=== PATIENT | male | born 1985 | race Caucasian/White ===

== ENCOUNTER 2017-12-30 19:23 | Emergency (ER) | payer MEDICAID ==
[~2017-12-30] VITALS: Ht 170.2 cm; Wt 84.0 kg
[2017-12-30] MEDS ORDERED: IBUPROFEN 600MG TABLET PO ONE (22:00)
[2017-12-30 22:01] VITALS: BP 148/90
== END 2017-12-30 22:01 | disposition home or self-care (01) ==
LOC: ER 21:58
DX: K02.9 Dental caries, unspecified (principal); K05.219 Aggressive periodontitis, localized, unspecified severity; F17.200 Nicotine dependence, unspecified, uncomplicated
CPT/HCPCS: 99283

== ENCOUNTER 2022-03-15 21:34 | Inpatient (IN) | payer OTHER ==
[~2022-03-15] VITALS: Ht 167.6 cm; Wt 75.6 kg
[2022-03-15 23:05] LABS: BASOPHILS % 1.3 % (0.0-2.0); EOSINOPHILS % 3.9 % (0.0-5.0); HEMATOCRIT. 47.6 % (42.0-52.0); HEMOGLOBIN. 16.7 g/dL (14.0-18.0); LYMPHOCYTES % 35.4 % (20.0-50.0); MEAN CORPUSCULAR HEMOGLOBIN 35.7 pg (28.0-32.0); MEAN PLATELET VOLUME 10.7 fl (7.4-10.4); MONOCYTES % 9.2 % (2.0-8.0); NEUTROPHILS % 50.2 % (40.0-76.0); PLATELET 130 x1000/uL (130-400); RED BLOOD CELL COUNT 4.66 mill/uL (4.7-6.1); RED CELL DISTRIBUTION WIDTH 12.7 % (11.6-14.6)
[2022-03-15 23:11] LABS: CHLORIDE 108 mEq/L (98-107)
[2022-03-15 23:20] LABS: ETHANOL BLOOD 208 mg/dL
[2022-03-15] MEDS ORDERED: IOHEXOL-350 100 ML BOTTLE ONE (23:32)
[2022-03-15] MEDS ORDERED: KETOROLAC 15MG/ML VIAL IV ONE (23:45)
[2022-03-15] MEDS ORDERED: SODIUM CHLORIDE 0.9% 1,000 ML IV ONE (23:45)
[2022-03-15] MEDS ORDERED: DIPHENHYDRAMINE 50MG/ML VIAL IV ONE (23:45)
[2022-03-15] MEDS ORDERED: METOCLOPRAMIDE HCL 10MG/2ML VIAL IV ONE (23:45)
[2022-03-15] MEDS ORDERED: MIDAZOLAM HCL 2 MG/2 ML VIAL IV ONE (23:45)
[2022-03-16 01:35] LABS: CLARITY URINE CLEAR (CLEAR); COLOR URINE YELLOW (YELLOW); KETONES URINE NEGATIVE (NEGATIVE); LEUKOCYTE ESTERASE URINE NEGATIVE (NEGATIVE); NITRITE URINE NEGATIVE (NEGATIVE); OCCULT BLOOD URINE NEGATIVE (NEGATIVE); PROTEIN URINE NEGATIVE (NEGATIVE); SPECIFIC GRAVITY URINE 1.009 (1.005-1.030); UROBILINOGEN URINE 0.2 E.U./dL (0.2-1.0)
[2022-03-16 01:58] LABS: *AMPHETAMINES SCREEN URINE NEGATIVE (NEGATIVE); *BARBITURATES SCREEN URINE NEGATIVE (NEGATIVE); *BENZODIAZEPINES SCREEN URINE NEGATIVE (NEGATIVE); *COCAINE SCREEN URINE PRESUMTIVE POSITIVE (NEGATIVE); CANNABINOID URINE SCREEN NEGATIVE (NEGATIVE); METHADONE URINE SCREEN NEGATIVE (NEGATIVE); OPIATES URINE SCREEN NEGATIVE (NEGATIVE); PHENCYCLIDINE URINE SCREEN NEGATIVE (NEGATIVE)
[2022-03-16 10:00] VITALS: BP 132/74
[2022-03-16 10:30] VITALS: BP 132/74
[2022-03-16] MEDS ORDERED: ACETAMINOPHEN 325MG TABLET PO PRN (10:45)
[2022-03-16] MEDS ORDERED: ONDANSETRON HCL 4MG/2ML INJ IV PRN (10:45)
[2022-03-16] MEDS: KETOROLAC 30MG/ML VIAL IV PRN ×2 (11:16→22:33)
[2022-03-16 12:00] VITALS: BP 133/82
[2022-03-16] MEDS: LORAZEPAM 1MG TABLET PO PRN ×2 (12:18→21:23)
[2022-03-16] MEDS: CHLORDIAZEPOXIDE 25MG CAPSULE PO SCH ×2 (14:54→21:23)
[2022-03-16] MEDS ORDERED: NALOXONE HCL 0.4MG/ML VIAL IV PRN (15:45)
[2022-03-16 16:00] VITALS: BP 131/81
[2022-03-16] MEDS: HYDROCODONE/ACETAMINOPHEN 5/325MG TABLET PO PRN ×2 (17:08→21:23)
[2022-03-16 20:00] VITALS: BP 138/83
[2022-03-17] VITALS: BP 130/78
[2022-03-17 04:00] VITALS: BP 134/73
[2022-03-17] MEDS: CHLORDIAZEPOXIDE 25MG CAPSULE PO SCH ×3 (05:15→21:33)
[2022-03-17 08:00] VITALS: BP 125/71
[2022-03-17] MEDS: THIAMINE HCL 100MG TABLET PO SCH (10:21)
[2022-03-17 12:00] VITALS: BP 124/73
[2022-03-17 16:00] VITALS: BP 141/85
[2022-03-17] MEDS: HYDROCODONE/ACETAMINOPHEN 5/325MG TABLET PO PRN (16:36)
[2022-03-17] MEDS ORDERED: BACLOFEN 10MG TABLET PO NR (18:00)
[2022-03-17] MEDS ORDERED: MORPHINE SULFATE 2 MG/ML CPJ (NOT FOR IM USE) IV NR (18:00)
[2022-03-17 20:00] VITALS: BP 145/85
[2022-03-18] VITALS: BP 116/81
[2022-03-18] MEDS: HYDROCODONE/ACETAMINOPHEN 5/325MG TABLET PO PRN ×2 (00:26→10:53)
[2022-03-18 04:00] VITALS: BP 127/76
[2022-03-18] MEDS: CHLORDIAZEPOXIDE 25MG CAPSULE PO SCH (05:21)
[2022-03-18 08:00] VITALS: BP 119/77
[2022-03-18] MEDS: THIAMINE HCL 100MG TABLET PO SCH (08:12)
[2022-03-18 12:00] VITALS: BP 111/72
== END 2022-03-18 15:25 | disposition home or self-care (01) | DRG 54 ==
LOC: ER 21:34 → 8WST 03-16 04:44
PROVIDERS: ADMIT Internal Medicine; ATTEND Internal Medicine
DX: G43.809 Other migraine, not intractable, without status migrainosus (principal); E87.8 Other disorders of electrolyte and fluid balance, not elsewhere classified; E83.51 Hypocalcemia; E88.09 Other disorders of plasma-protein metabolism, not elsewhere classified; F10.929 Alcohol use, unspecified with intoxication, unspecified; F14.90 Cocaine use, unspecified, uncomplicated; F41.9 Anxiety disorder, unspecified; Z20.822 Contact with and (suspected) exposure to COVID-19; I10 Essential (primary) hypertension; Y90.7 Blood alcohol level of 200-239 mg/100 ml; R74.01 Elevation of levels of liver transaminase levels; G89.29 Other chronic pain; Z71.41 Alcohol abuse counseling and surveillance of alcoholic
CPT/HCPCS: 36415; 70496; 70498; 71045; 72141; 72148; 80053; 80305; 80320; 81003; 82962; 85025; 87426; 93005; 97161; 99285; C9803; J1200; J1885; J2250; J2270; J2765; J7030; Q9967; G0480

== ENCOUNTER 2023-05-13 23:46 | Emergency (ER) | payer MEDICAID, OTHER ==
[~2023-05-13] VITALS: Ht 165.1 cm; Wt 70.0 kg
[2023-05-14] VITALS: O2SAT 98
[2023-05-14 00:25] VITALS: TEMP 98.4
[2023-05-14 00:52] LABS: BASOPHILS % 1.7 % (0.0-2.0); EOSINOPHILS % 3.5 % (0.0-5.0); HEMATOCRIT. 47.1 % (42.0-52.0); HEMOGLOBIN. 16.4 g/dL (14.0-18.0); LYMPHOCYTES % 43.9 % (20.0-50.0); MEAN CORPUSCULAR HEMOGLOBIN 34.5 pg (28.0-32.0); MEAN CORPUSCULAR HGB CONC 34.9 g/dL (31.0-37.0); MEAN CORPUSCULAR VOLUME 98.7 fL (80.0-94.0); MEAN PLATELET VOLUME 11.4 fl (7.4-10.4); MONOCYTES % 5.6 % (2.0-8.0); NEUTROPHILS % 45.3 % (40.0-76.0); PLATELET 124 x1000/uL (130-400); RED BLOOD CELL COUNT 4.77 mill/uL (4.7-6.1); RED CELL DISTRIBUTION WIDTH 12.7 % (11.6-14.6); WHITE BLOOD COUNT 8.5 x1000/uL (4.5-11.0)
[2023-05-14 01:08] LABS: CALCIUM 8.1 mg/dL (8.5-10.1); INDEX HEMOLYSI 1 (1-3); INDEX ICTERIC 1 (1-4); INDEX LIPEMIC 1 (1-3)
[2023-05-14 01:18] LABS: INR 1.1; PROTHROMBIN TIME 11.5 sec (9.6-11.0)
[2023-05-14 01:38] LABS: ALANINE AMINOTRANSFERASE 110 IU/L (13-61); ASPARTATE AMINOTRANSFERASE 85 IU/L (15-37); BILIRUBIN TOTAL 0.6 mg/dL (0.1-1.0); CARBON DIOXIDE 23 mEq/L (21-32); CHLORIDE 111 mEq/L (98-107); CREATININE 0.7 mg/dL (0.6-1.3); ETHANOL BLOOD 113 mg/dL (-10); GLUCOSE 98 mg/dL (70-105); POTASSIUM 3.6 mEq/L (3.5-5.1); PROTEIN TOTAL 8.6 g/dL (6.0-8.3); SODIUM 140 mEq/L (136-145); TROPONIN I HIGH SENSITIVITY 4 ng/L (<78); UREA NITROGEN BLOOD 5 mg/dL (7-21)
[2023-05-14] MEDS ORDERED: ASPIRIN 81MG TABLET PO ONE (03:15)
[2023-05-14] MEDS ORDERED: IOHEXOL-350 100 ML BOTTLE ONE (03:58)
[2023-05-14] MEDS ORDERED: ASPIRIN 300MG SUPP PR ONE (04:30)
[2023-05-14 06:44] VITALS: BP 127/82; PULSE 73; RESP 12
== END 2023-05-14 07:02 | disposition left against medical advice (07) ==
LOC: ER 23:46
DX: G45.9 Transient cerebral ischemic attack, unspecified (principal); I63.9 Cerebral infarction, unspecified; I10 Essential (primary) hypertension; F10.229 Alcohol dependence with intoxication, unspecified; Y90.5 Blood alcohol level of 100-119 mg/100 ml
CPT/HCPCS: 82962; 36415; 71045; 70450; 93005; 99291; 80053; 80320; 85025; 85610; 84484; 70496; 70498; Q9967; G0480

== ENCOUNTER 2023-07-12 16:59 | Emergency (ER) | payer OTHER ==
[~2023-07-12] VITALS: Ht 167.6 cm; Wt 113.2 kg
[2023-07-12 17:10] VITALS: O2SAT 97
[2023-07-12 17:44] LABS: BASOPHILS % 2.4 % (0.0-2.0); EOSINOPHILS % 2.2 % (0.0-5.0); HEMATOCRIT. 44.7 % (42.0-52.0); HEMOGLOBIN. 15.6 g/dL (14.0-18.0); LYMPHOCYTES % 37.6 % (20.0-50.0); MEAN CORPUSCULAR HEMOGLOBIN 34.7 pg (28.0-32.0); MEAN CORPUSCULAR VOLUME 99.2 fL (80.0-94.0); MEAN PLATELET VOLUME 10.2 fl (7.4-10.4); MONOCYTES % 5.3 % (2.0-8.0); NEUTROPHILS % 52.5 % (40.0-76.0); PLATELET 163 x1000/uL (130-400); RED CELL DISTRIBUTION WIDTH 12.7 % (11.6-14.6); WHITE BLOOD COUNT 10.1 x1000/uL (4.5-11.0)
[2023-07-12 17:50] LABS: CHLORIDE 108 mEq/L (98-107); INDEX HEMOLYSI 1 (1-3); INDEX ICTERIC 1 (1-4); INDEX LIPEMIC 1 (1-3); POTASSIUM 3.5 mEq/L (3.5-5.1); SODIUM 140 mEq/L (136-145)
[2023-07-12 17:52] LABS: CALCIUM 8.5 mg/dL (8.5-10.1)
[2023-07-12 17:59] LABS: ACETAMINOPHEN <2 ug/mL ug/mL (10-30); ALANINE AMINOTRANSFERASE 67 IU/L (13-61); ALBUMIN 3.9 g/dL (3.4-5.0); ASPARTATE AMINOTRANSFERASE 34 IU/L (15-37); BILIRUBIN TOTAL 0.8 mg/dL (0.1-1.0); CARBON DIOXIDE 23 mEq/L (21-32); CREATININE 0.7 mg/dL (0.6-1.3); ETHANOL BLOOD 246 mg/dL (<10); GLUCOSE 103 mg/dL (70-105); PROTEIN TOTAL 8.2 g/dL (6.0-8.3); UREA NITROGEN BLOOD 5 mg/dL (7-21)
[2023-07-12 18:57] VITALS: BP 146/93; PULSE 99; RESP 11; TEMP 97.9
[2023-07-12] MEDS ORDERED: TETANUS, DIPHTHERIA, PERTUSSIS VAC/PF 0.5ML (>10YR OLD) IM ONE (20:30)
[2023-07-12] MEDS ORDERED: ASPIRIN 325MG EC TABLET PO NR (20:30)
== END 2023-07-12 20:53 | disposition left against medical advice (07) ==
LOC: ER 16:59 → EDBEDREQ 20:41 → EDBEDREQTM 20:41 → ER 20:53 → MICUSO 20:53 → UNDOADMIN 07-13 00:26 → MICUSO 07-13 00:26
DX: S61.512A Laceration without foreign body of left wrist, initial encounter (principal); I63.9 Cerebral infarction, unspecified; Z79.899 Other long term (current) drug therapy; X78.8XXA Intentional self-harm by other sharp object, initial encounter; Y93.89 Activity, other specified; Y92.89 Other specified places as the place of occurrence of the external cause; Y99.8 Other external cause status
CPT/HCPCS: 80053; 80307; 80329; 80320; 85025; 36415; 70496; 70498; 70450; 99291; Q9967; Z7610 ×3; 90715; G0480